=== PATIENT | female | born 1980 | race Caucasian/White ===

== ENCOUNTER 2020-10-03 14:44 | Outpatient (CLI) | payer OTHER | END 2020-10-03 15:03 | disposition home or self-care (01) | LOC: NUCLEAR 14:44 | PROVIDERS: ATTEND Internal Medicine Sports Medicine | DX: E05.80 Other thyrotoxicosis without thyrotoxic crisis or storm (principal); E04.1 Nontoxic single thyroid nodule | CPT/HCPCS: 79005; A9517 ==